=== PATIENT | female | born 1965 | race Caucasian/White ===

== ENCOUNTER → 2017-05-01 | Day surgery (SDC) | payer OTHER ==
[~2017-05-01] VITALS: Ht 165.1 cm; Wt 83.5 kg
[~2017-05-01] MED LIST: ALLERGY RELIEF1 EAC2 PO; AMPHETAMINE SAL15 M1 PO; CLONAZEPAM2 MG PO; CYCLOBENZAPRINE10 MG PO; DIAZEPAM5 MG PO; ETODOLAC500 MG PO; FLUTICASONE SPR 50M NAS; LAMICTAL100 MG PO; LAMICTAL200 MG PO; MOTRIN800 MG PO; NAPROSYN500 MG PO; TEMAZEPAM30 MG PO; THORAZINE10 MG PO; ZIAC 5 MG-6.251 TAB PO
[2017-05-01 07:15] VITALS: BP 108/54
[2017-05-01 09:08] VITALS: BP 114/63
[2017-05-01 09:20] VITALS: BP 126/65
[2017-05-01 09:34] VITALS: BP 130/70
== END | disposition home or self-care (01) ==
LOC: SDC 04-27 13:15
DX: D36.7 Benign neoplasm of other specified sites (principal); Z88.0 Allergy status to penicillin; Z88.5 Allergy status to narcotic agent; F32.9 Major depressive disorder, single episode, unspecified; F41.9 Anxiety disorder, unspecified; Z80.9 Family history of malignant neoplasm, unspecified; Z90.710 Acquired absence of both cervix and uterus